=== PATIENT | male | born 1930 | race Caucasian/White ===

== ENCOUNTER 2017-05-24 00:57 | Inpatient (IN) | payer OTHER ==
[~2017-05-24] VITALS: Ht 157.5 cm; Wt 65.8 kg
[2017-05-24] VITALS (12 sets, daily range): BP systolic 103–141; BP diastolic 57–78
--- NOTE | 2017-05-24 01:00 | NUR ---
PT. AMBULATED TO ER BED 12
--- NOTE | 2017-05-24 01:29 | NUR ---
86Y/M PT. BIB FAMILY TO ED WITH C/O CHEST PAIN X 2 WKS. PT. WAS SEEN BY PMD WITH LAB WORK UP THIS THURSDAY, STATES HIGH CALCIUM. DENIES MEDICAL HX. AAO X4, MAURITIAN SPEAKING, AMBULATORY WITH STAEDY GAIT. RESPIRATIONS RA, EVEN AND UNLABORED. C/O CHEST PAIN STATES PAIN 3/10, NO RADIATION. VSS, ER MADE AWARE OF PT. STATUS.
--- NOTE | 2017-05-24 02:00 | NUR ---
pt taken to XRAY
[2017-05-24 02:24] LABS: ALBUMIN 2.9 g/dL (3.4-5.0); ANION GAP 11.5 (8-16); ASPARTATE AMINOTRANSFERASE 18 U/L (15-37); CARBON DIOXIDE 23.1 mmol/L (21-32); CHLORIDE 108 mmol/L (98-107); CREATININE 1.5 mg/dL (0.7-1.3); GLUCOSE 113 mg/dL (74-106); POTASSIUM 4.6 mmol/L (3.5-5.1); SODIUM SERUM 138 mmol/L (136-145); TOTAL BILIRUBIN 0.2 mg/dL (0.0-1.0); UREA NITROGEN, BLOOD 38 mg/dL (7-18)
[2017-05-24 02:33] LABS: PROTHROMBIN TIME 10.3 secs (10.8-13.4)
--- NOTE | 2017-05-24 03:00 | NUR ---
Patient appears to be resting comfortably in bed. Vital Signs within normal limits. Respirations even and unlabored.
[2017-05-24 03:13] LABS: BASOPHILS # (AUTO) 0.2 K/uL (0.00-0.22); BASOPHILS % (AUTO) 2.4 % (0.0-2.0); EOSINOPHILS # (AUTO) 0.3 K/uL (0-0.4); EOSINOPHILS % (AUTO) 3.4 % (0.0-4.0); HEMATOCRIT 49.2 % (36-52); HEMOGLOBIN 15.8 g/dL (12.0-18.0); LYMPHOCYTES # (AUTO) 1.5 K/uL (2.0-11.5); LYMPHOCYTES % (AUTO) 16.3 % (20.5-51.1); MEAN CORPUSCULAR HEMOGLOBIN 27 pg (27-31); MEAN CORPUSCULAR HGB CONC 32 g/dL (33-37); MEAN CORPUSCULAR VOLUME 84 fL (80-94); MONOCYTES # (AUTO) 0.9 K/uL (0.8-1.0); MONOCYTES % (AUTO) 9.5 % (1.7-9.3); NEUTROPHILS # (AUTO) 6.2 K/uL (1.8-7.7); NEUTROPHILS % (AUTO) 68.4 % (42.2-75.2); PLATELET COUNT (AUTO) 291 K/uL (140-450); RED BLOOD CELL COUNT(AUTO) 5.86 MIL/uL (4.20-6.10); RED CELL DISTRIBUTION WIDTH 14.1 % (11.6-13.7)
[2017-05-24 03:15] LABS: WHITE BLOOD COUNT (AUTO) 9.1 K/uL (4.8-10.8)
[2017-05-24] MEDS ORDERED: ONDANSETRON 4 MG/2 ML VIAL IVP PRN (03:15)
[2017-05-24] MEDS ORDERED: LISINOPRIL 5 MG TAB PO SCH ×2 (03:15)
[2017-05-24] MEDS ORDERED: ALUMINUM HYD/MAG/SIMETHICONE 30 ML UDC PO ONE (03:15)
[2017-05-24] MEDS ORDERED: NITROGLYCERIN 0.4 MG TAB SL PRN (03:15)
[2017-05-24] MEDS ORDERED: ACETAMINOPHEN 325 MG TAB PO PRN (03:15)
[2017-05-24] MEDS ORDERED: DICYCLOMINE HCL LIQUID 10 MG/5 ML UDC PO ONE (03:15)
[2017-05-24] MEDS ORDERED: LIDOCAINE VISCOUS 2% 20 ML UDC PO ONE (03:15)
--- NOTE | 2017-05-24 03:44 | NUR ---
Patient will be admitted to care of [facility]. Admited to TELE . Will go to room 124A. Belongings list completed. BEDSIDE Report to RAMY KANG. IV SL AND PATENT
--- NOTE | 2017-05-24 03:52 | NUR ---
RECEIVED PT FROM ER VIA SHELL. AAOX4. NO C/O PAIN AT THIS TIME. SON AT BEDSIDE. IV TO RIGHT WRIST #20G, PATENT AND INTACT. ORIENTED PT TO ROOM. DISCUSSED PLAN OF CARE, PT AND SON VERBALIZED UNDERSTANDING. FALL/SAFETY PRECAUTION IN PLACE. CALL LIGHT WITHIN REACH. WILL CONTINUE TO MONITOR.
[2017-05-24] MEDS ORDERED: MECLIZINE 25 MG TAB PO PRN (03:55)
[2017-05-24 04:14] LABS: CHOL/HDL RATIO 2.6 (1-4.5); FREE T4 (FREE THYROXINE) 1.21 ng/dL (0.76-1.46); MAGNESIUM 2.3 mg/dL (1.8-2.4); PHOSPHORUS 2.5 mg/dL (2.5-4.9); THYROID STIMULATING HORMONE 0.49 uIU/mL (0.34-3.74)
[2017-05-24] MEDS: NACL 0.9% 1,000 ML IV SCH ×2 (04:30→23:34)
[2017-05-24] MEDS: METOPROLOL 25 MG TAB PO SCH ×3 (05:25→21:00)
--- NOTE | 2017-05-24 06:00 | NUR ---
PT SLEEPING BUT EASILY AROUSABLE. NO S/S OF PAIN OR DISCOMFORT. CALL LIGHT WITHIN REACH.
--- NOTE | 2017-05-24 07:05 | NUR ---
ENDORSED PT TO DAY SHIFT NURSE. PT IN STABLE CONDITION.
--- NOTE | 2017-05-24 07:06 | NUR ---
RECEIVED REPORT FROM SUPERVISOR FLESHING NURSE. PATIENT LYING IN BED. NO DISTRESS NOTED. DENIES ANY PAIN AT THIS TIME. REPORTS HAVING CHEST PAIN WHEN PERFORMING ACTIVITY SUCH STANDING UP. RESPIRATIONS EVEN, UNLABORED, ON ROOM AIR. LUNGS CTA ON ALL LOBES. ABDOMEN SOFT, NON-DISTENDED. SKIN INTACT. IV SITE INTACT, PATENT, AND INFUSING PER ORDERS. REVIEWED PLAN OF CARE WITH PATIENT. PATIENT VERBALIZED UNDERSTANDING. SAFETY MEASURES IN PLACE, CALL LIGHT WITHIN REACH. WILL CONTINUE TO MONITOR.
--- NOTE | 2017-05-24 08:00 | NUR ---
RADIOLOGIST FOR ULTRASOUND AT BEDSIDE. WILL CONTINUE TO MONITOR.
--- NOTE | 2017-05-24 08:50 | NUR ---
BP 125/58, HR 58. DR. OLEA ORDERED TO HOLD LOPRESSOR 12.5 MG PO, DUE AT 2099. Addendum: 05/24/17 at 2057 by Patricia Burr RN WRONG TIME
[2017-05-24] MEDS: DOCUSATE SODIUM 100 MG GELCAP PO SCH ×2 (09:17→20:52)
[2017-05-24] MEDS: ASPIRIN 81 MG TAB.CHEW PO SCH (09:17)
[2017-05-24] MEDS: PANTOPRAZOLE 40 MG INJ VIAL IVP SCH (09:17)
--- NOTE | 2017-05-24 09:27 | NUR ---
PATIENT SITTING IN BED WITH BREAKFAST TRAY IN FRONT. FAMILY MEMBER AT BEDSIDE. NO DISTRESS NOTED. DENIES ANY PAIN AT THIS TIME. SCHEDULED MEDICATIONS DUE GIVEN. METOPROLOL NOT GIVEN DO TO BID SCHEDULE AND LAST ONE GIVEN BY HOSPITAL UNIT COORDINATOR NURSE AT 0525 DURING ADMISSION. SAFETY MEASURES IN PLACE, CALL LIGHT WITHIN REACH. WILL CONTINUE TO MONITOR.
--- NOTE | 2017-05-24 10:00 | NUR ---
RADIOLOGIST AT BEDSIDE READY TO TAKE PATIENT FOR CT SCAN OF HEAD WITHOUT CONTRAST. WILL CONTINUE TO MONITOR ONCE PATIENT COMES BACK ON UNIT.
--- NOTE | 2017-05-24 10:38 | NUR ---
PATIENT HAS BEEN SCREENED AND CATEGORIZED MODERATE NUTRITION RISK. PATIENT WILL BE SEEN WITHIN 3-5 DAYS OF ADMISSION. 05/27/17 - 05/29/17 GERMAN REYES MBA, RD
[2017-05-24] MEDS ORDERED: diphenhydrAMINE 50 MG/ML VIAL IVP PRN (10:40)
--- NOTE | 2017-05-24 10:40 | NUR ---
PATIENT BACK ON MST UNIT FROM RADIOLOGY CT HEAD. PATIENT TOLERATED PROCEDURE WELL. NO DISTRESS NOTED. DENIES ANY PAIN AT THIS TIME. WILL CONTINUE TO MONITOR. FAMILY MEMBERS AT BEDSIDE WITH PATIENT.
--- NOTE | 2017-05-24 11:50 | NUR ---
PATIENT LYING IN BED TALKING WITH FAMILY MEMBERS AT BEDSIDE. NO DISTRESS NOTED. DENIES ANY PAIN AT THIS TIME. SAFETY MEASURES IN PLACE, CALL LIGHT WITHIN REACH. WILL CONTINUE TO MONITOR.
--- NOTE | 2017-05-24 13:00 | NUR ---
RADIOLOGY ON UNIT TO TAKE PATIENT FOR A NM PULMONARY SCAN. WILL CONTINUE TO MONITOR WHEN PATIENT RETURNS TO UNIT.
--- NOTE | 2017-05-24 15:06 | NUR ---
PATIENT LYING IN BED COMFORTABLY TALKING WITH FAMILY MEMBERS AT BEDSIDE. NO DISTRESS NOTED. DENIES ANY PAIN AT THIS TIME. ASSISTED PATIENT TO BATHROOM AND BACK TO BED. PATIENT ABLE TO AMBULATE WITH ASSIST. SAFETY MEASURES IN PLACE, CALL LIGHT WITHIN REACH. WILL CONTINUE TO MONITOR.
--- NOTE | 2017-05-24 16:42 | NUR ---
PATIENT WALKING DOWN THE [facility] HALLWAYS WITH FAMILY MEMBERS. PATIENT BACK TO BED. COMPLAINS OF ITCHING ALL OVER BODY AND PAIN. WILL MEDICATE WITH BENADRYL AND NORCO PER ORDERS. SAFETY MEASURES IN PLACE, CALL LIGHT WITHIN REACH. WILL CONTINUE TO MONITOR
[2017-05-24] MEDS: HYDROcodone/APAP 7.5/325 MG 1 TAB PO PRN (16:44)
--- NOTE | 2017-05-24 18:24 | NUR ---
PATIENT SITTING IN BED WITH DINNER TRAY IN FRONT. FAMILY MEMBERS AT BEDSIDE. NO DISTRESS NOTED. DENIES ANY PAIN AT THIS TIME. SAFETY MEASURES IN PLACE, CALL LIGHT WITHIN REACH. WILL CONTINUE TO MONITOR.
--- NOTE | 2017-05-24 19:24 | NUR ---
GAVE REPORT TO NUTRIENT MANAGEMENT SPECIALIST NURSE FOR CONTINUITY OF CARE. PATIENT IN STABLE CONDITION.
--- NOTE | 2017-05-24 19:25 | NUR ---
RECEIVED REPORT FROM DAY SHIFT NURSE. PT IN BED, AAOX4. NO C/O PAIN. PT STATED THAT HE'S OKAY. IV TO RIGHT WRIST #20G, NS AT 50 ML/HR. DISCUSSED PLAN OF CARE. PT VERBALIZED UNDERSTANDING. SAFETY PRECAUTION IN PLACE. CALL LIGHT WITHIN REACH. WILL CONTINUE TO MONITOR.
--- NOTE | 2017-05-24 20:50 | NUR ---
BP 125/58, HR 58. DR. OLEA ORDERED TO HOLD LOPRESSOR 12.5 MG PO, DUE AT 2100.
[2017-05-24] MEDS ORDERED: ATORVASTATIN 20 MG TAB PO SCH (21:00)
--- NOTE | 2017-05-24 22:30 | NUR ---
DR. ELLIS CAME IN TO SEE PT.
[2017-05-25] VITALS: BP 107/68
--- NOTE | 2017-05-25 01:05 | NUR ---
PT SLEEPING BUT WAKES EASILY. NO S/S OF DISTRESS. SAFETY PRECAUTION IN PLACE. CALL LIGHT WITHIN REACH.
--- NOTE | 2017-05-25 02:00 | NUR ---
PT REFUSED SCD'S. EXPLAINED TO PT THE BENEFITS OF SCD'S BUT STILL REFUSED. PT STATED THAT HE DOESN'T NEED IT.
[2017-05-25] MEDS: HYDROcodone/APAP 7.5/325 MG 1 TAB PO PRN (02:14)
[2017-05-25 04:00] VITALS: BP 105/66
--- NOTE | 2017-05-25 04:45 | NUR ---
PT SLEEPING BUT WAKES EASILY. NO S/S OF DISTRESS. SAFETY PRECAUTION IN PLACE. CALL LIGHT WITHIN REACH.
[2017-05-25] MEDS: NACL 0.9% 1,000 ML IV SCH ×2 (05:47→12:27)
[2017-05-25 06:57] LABS: ANION GAP 12.7 (8-16); CARBON DIOXIDE 24.1 mmol/L (21-32); CHLORIDE 108 mmol/L (98-107); CREATININE 1.7 mg/dL (0.7-1.3); GLUCOSE 105 mg/dL (74-106); POTASSIUM 4.8 mmol/L (3.5-5.1); SODIUM SERUM 140 mmol/L (136-145); UREA NITROGEN, BLOOD 33 mg/dL (7-18)
[2017-05-25 06:59] LABS: MAGNESIUM 1.9 mg/dL (1.8-2.4); PHOSPHORUS 2.3 mg/dL (2.5-4.9)
--- NOTE | 2017-05-25 07:05 | NUR ---
ENDORSED PT TO DAY SHIFT NURSE. PT IN STABLE CONDITION.
--- NOTE | 2017-05-25 07:06 | NUR ---
RECEIVED REPORT FROM DIE FITTER NURSE. PATIENT LYING IN BED. NO DISTRESS NOTED. DENIES ANY PAIN AT THIS TIME. RESPIRATIONS EVEN, UNLABORED, ON ROOM AIR. AAOX4, CALM, COOPERATIVE, SKIN COLOR APPROPRIATE TO ETHNICITY, WARM TO TOUCH. SKIN IS INTACT. LUNGS CTA ON ALL LOBES. ABDOMEN SOFT, NON-DISTENDED. SKIN INTACT. IV SITE INTACT, PATENT, AND INFUSING PER ORDERS. REVIEWED PLAN OF CARE WITH PATIENT. PATIENT VERBALIZED UNDERSTANDING. SAFETY MEASURES IN PLACE, CALL LIGHT WITHIN REACH. WILL CONTINUE TO MONITOR.
[2017-05-25 07:16] LABS: BASOPHILS # (AUTO) 0.2 K/uL (0.00-0.22); EOSINOPHILS # (AUTO) 0.3 K/uL (0-0.4); EOSINOPHILS % (AUTO) 3.8 % (0.0-4.0); HEMATOCRIT 43.7 % (36-52); HEMOGLOBIN 14.3 g/dL (12.0-18.0); LYMPHOCYTES # (AUTO) 1.9 K/uL (2.0-11.5); LYMPHOCYTES % (AUTO) 22.7 % (20.5-51.1); MEAN CORPUSCULAR HEMOGLOBIN 28 pg (27-31); MEAN CORPUSCULAR HGB CONC 33 g/dL (33-37); MEAN CORPUSCULAR VOLUME 84 fL (80-94); MONOCYTES # (AUTO) 0.9 K/uL (0.8-1.0); MONOCYTES % (AUTO) 10.4 % (1.7-9.3); NEUTROPHILS % (AUTO) 61.1 % (42.2-75.2); PLATELET COUNT (AUTO) 266 K/uL (140-450); RED BLOOD CELL COUNT(AUTO) 5.19 MIL/uL (4.20-6.10); RED CELL DISTRIBUTION WIDTH 14.4 % (11.6-13.7); WHITE BLOOD COUNT (AUTO) 8.3 K/uL (4.8-10.8)
[2017-05-25 08:00] VITALS: BP 135/69
[2017-05-25] MEDS ORDERED: METOPROLOL 25 MG TAB PO SCH (09:00)
[2017-05-25] MEDS ORDERED: LISINOPRIL 5 MG TAB PO SCH (09:00)
--- NOTE | 2017-05-25 09:00 | NUR ---
PHYSICAL THERAPIST AT BEDSIDE WORKING WITH PATIENT. PATIENT ABLE TO WALK AROUND HALLWAYS WITH PT. WILL CONTINUE TO MONITOR.
[2017-05-25] MEDS: ASPIRIN 81 MG TAB.CHEW PO SCH (09:21)
[2017-05-25] MEDS: DOCUSATE SODIUM 100 MG GELCAP PO SCH (09:21)
[2017-05-25] MEDS: PANTOPRAZOLE 40 MG INJ VIAL IVP SCH (09:22)
[2017-05-25] MEDS: METOPROLOL 25 MG TAB PO SCH (09:22)
--- NOTE | 2017-05-25 09:28 | NUR ---
PATIENT LYING DOWN IN BED TALKING WITH FAMILY MEMBERS AT BEDSIDE. NO DISTRESS NOTED. DENIES ANY PAIN AT THIS TIME. SCHEDULED MEDICATIONS DUE GIVEN. SAFETY MEASURES IN PLACE, CALL LIGHT WITHIN REACH. WILL CONTINUE TO MONITOR.
[2017-05-25] MEDS ORDERED: GUAI237L61 PO (10:15)
[2017-05-25] MEDS ORDERED: IBUP-2213 PO (10:20)
--- NOTE | 2017-05-25 11:30 | NUR ---
PATIENT SITTING IN BED TALKING WITH FAMILY MEMBERS AT BEDSIDE. NO DISTRESS NOTED. DENIES ANY PAIN AT THIS TIME. FAMILY MEMBERS AT BEDSIDE. DISCHARGE INSTRUCTIONS/EDUCATION PROVIDED TO PATIENT/FAMILY IN [place]. PATIENT PREFERRED FAMILY MEMBERS TO TRANSLATE TO POLISH INSTEAD OF USING REPACK ROOM WORKER SERVICES OVER THE PHONE THAT WAS OFFERED TO THE PATIENT. MD FOLLOW-UP, NEW/CHANGED MEDICATION REGIMEN, DIET REGIMEN TO FOLLOW AT HOME, AND DISEASE PREVENTION/MANAGEMENT OF CHEST PAIN EDUCATION PROVIDED TO PATIENT/FAMILY. ANSWERED ALL OF PATIENT'S/FAMILY QUESTIONS. PATIENT/FAMILY VERBALIZED COMPLETE UNDERSTANDING. PNA VACCINE GIVEN PER PATIENT REQUEST. AWAITING FOR SON TO ARRIVE ON HOSPITAL TO TAKE PATIENT HOME. WILL CONTINUE TO MONITOR.
--- NOTE | 2017-05-25 11:37 | NUR ---
CM NOTE SPOKE W/ AR FROM DAVID CASTAÑEDA. FAXED ORDER & FS TO DAVID / FAX# [phone], C: [phone]
[2017-05-25 12:00] VITALS: BP 136/68
[2017-05-25] MEDS ORDERED: PNEUMOCOCCAL VACCINE 23 MCG/0.5 ML VIAL IMVAC SCH (12:55)
--- NOTE | 2017-05-25 14:10 | NUR ---
PATIENT'S SON ARRIVED ON UNIT TO TAKE PATIENT HOME. IV SITE REMOVED WITH MINIMAL BLOOD AND LUMEN COMPLETELY INTACT. ID BANDS REMOVED. ALL BELONGINGS WITH PATIENT. ESCORTED PATIENT DOWN TO LOBBY VIA WHEELCHAIR AND ASSISTED PATIENT FROM WHEELCHAIR TO PRIVATE VEHICLE. PATIENT DISCHARGED TO HOME VIA PRIVATE VEHICLE IN STABLE CONDITION AT THIS TIME.
--- NOTE | 2017-05-25 14:43 | NUR ---
CM NOTE INITIAL REVIEW FAXED TO [facility] / FAX# [phone], ATTN: JEN #[phone]
== END 2017-05-25 14:10 | disposition home or self-care (01) | DRG 391 ==
LOC: MED 00:57 → MTU 03:15
PROVIDERS: ADMIT Family Medicine; ATTEND Family Medicine
PROC: 3E0234Z Introduction of Serum, Toxoid and Vaccine into Muscle, Percutaneous Approach (ICD-10-PCS; principal; 2017-05-25)
DX: K21.9 Gastro-esophageal reflux disease without esophagitis (principal); N17.0 Acute kidney failure with tubular necrosis; E44.0 Moderate protein-calorie malnutrition; C79.51 Secondary malignant neoplasm of bone; G90.9 Disorder of the autonomic nervous system, unspecified; I27.20 Pulmonary hypertension, unspecified; E83.52 Hypercalcemia; E87.8 Other disorders of electrolyte and fluid balance, not elsewhere classified; Z85.528 Personal history of other malignant neoplasm of kidney; Z90.5 Acquired absence of kidney; Z83.3 Family history of diabetes mellitus; Z87.891 Personal history of nicotine dependence; Z23 Encounter for immunization; Z87.01 Personal history of pneumonia (recurrent)
CPT/HCPCS: 36415; 70450; 71045; 78582; 80048; 80053; 82140; 82150; 82306; 83036; 83690; 83735; 83880; 84100; 84439; 84443; 84484; 85025; 85379; 85610; 85730; 87081; 90732; 93005; 93880; 93925; 93970; 97110; 99285; A9540; C9113; J1200; J7030; Q0092